=== PATIENT | female | born 1975 | race Caucasian/White ===

== ENCOUNTER 2018-05-21 08:27 | Emergency (ER) | payer MEDICARE, MEDICAID ==
[2018-05-21 08:42] VITALS: BP 137/92
--- NOTE | 2018-05-21 08:55 | EDM.PDOC ---
ED HPI GENERAL MEDICAL PROBLEM - General Chief Complaint: ENT Problem Stated Complaint: EARS,NOSE,THROAT,BACK Time Seen by Provider: 05/21/18 08:40 Source of Information: Reports: Patient, Old Records, RN History Limitations: Reports: No Limitations - History of Present Illness INITIAL COMMENTS - FREE TEXT/NARRATIVE: 42 yo female who quit smoking about 6 weeks ago presents with a fever to 101F this morning at home associated with a mild sore throat and a dry cough. Has not had a flu shot. 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 No SOB. Is worried mainly about strep. Did tx her fever before coming in. Not feeling well for about 4 d, much worse over the past 36 hrs. Onset: Gradual Onset Date: 05/17/18 Duration: Day(s): (4), Getting Worse Location: Reports: Neck (throat), Chest Quality: Reports: Other (mild burning in throat with cough or swallowing) Severity: Mild Improves with: Reports: Medication Worsens with: Reports: Other (coughing/swallowing) Context: Reports: Other (see HPI) Associated Symptoms: Reports: Cough, Fever/Chills. 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: Acetaminophen Throat Pain Score (Numeric/FACES): 6 - Related Data Allergies Allergy/AdvReac Type Severity Reaction Status Date / Time nortriptyline [Nortriptyline] Allergy Severe Airway Verified 12/07/17 09:00 Tightness hydrocodone bitartrate Allergy Intermediate Difficulty Verified 12/07/17 09:00 [From Vicodin] Swallowing citalopram [From Celexa] Allergy Other Verified 12/07/17 09:00 codeine Allergy Hives Verified 12/07/17 09:00 latex Allergy Hives Verified 12/07/17 09:00 Home Meds: Home Meds Cyclobenzaprine [Flexeril] 10 mg PO BID 03/06/14 [History] Omeprazole [Prilosec] 20 mg PO DAILY 07/22/14 [History] Albuterol Sulfate 3 ml INH Q4H PRN 12/05/17 [History] Albuterol Sulfate [Proventil Hfa] 1 - 2 puff INH Q4H PRN 12/05/17 [History] Prazosin [Minpress] 3 mg PO BEDTIME 12/05/17 [History] QUEtiapine [SEROquel] 100 mg PO BEDTIME 12/05/17 [History] hydrOXYzine pamoate [Vistaril] 25 - 50 mg PO TID PRN 12/05/17 [History] lamoTRIgine [LaMICtal] 150 mg PO DAILY 12/05/17 [History] Past Medical History HEENT History: Reports: Other (See Below) Other HEENT History: wears glasses Respiratory History: Reports: Bronchitis, Recurrent, COPD, Pneumonia, Recurrent , Other (See Below) Other Respiratory History: excercise induced asthma Gastrointestinal History: Reports: Chronic Diarrhea, GERD, Hemorrhoids, Other ( See Below) Other Gastrointestinal History: colitis 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: Reports: Endometriosis, Polycystic Ovaries, Musculoskeletal History: Reports: Arthritis, Back Pain, Chronic, Fracture, Other (See Below) Other Musculoskeletal History: left foot fracture Neurological History: Reports: Concussion, Migraines, Other (See Below) Other Neuro History: bulging disc L4-5 Psychiatric History: Reports: Anxiety, Bipolar, Depression, Panic Attack, PTSD Other Endocrine/Metabolic History: hypoglycemia - Infectious Disease History Infectious Disease History: Reports: Chicken Pox - Past Surgical History HEENT Surgical History: Reports: Oral Surgery GI Surgical History: Reports: Appendectomy, Colonoscopy Female Surgical History: Reports: Hysterectomy Neurological Surgical History: Reports: Lumbar Spine Musculoskeletal Surgical History: Reports: Other (See Below) Other Musculoskeletal Surgeries/Procedures:: foot surgery Social & Family History - Tobacco Use Smoking Status *Q: Former Smoker Used Tobacco, but Quit: Yes Month/Year Tobacco Last Used: 03/2008 - Caffeine Use Caffeine Use: Reports: Soda - Recreational Drug Use Recreational Drug Type: Reports: Marijuana/Hashish ED ROS ENT - Review of Systems Review Of Systems: See Below Constitutional: Reports: Fever, Malaise HEENT: Reports: Throat Pain (mild). Denies: Ear Pain, Eye Discharge, Rhinitis Respiratory: Reports: Cough. Denies: Shortness of Breath, Wheezing, Pleuritic Chest Pain, Sputum, Hemoptysis Cardiovascular: Reports: No Symptoms Endocrine: Reports: No Symptoms GI/Abdominal: Reports: No Symptoms : Reports: No Symptoms Musculoskeletal: Reports: No Symptoms Skin: Reports: No Symptoms Neurological: Reports: No Symptoms ED EXAM, ENT - Physical Exam Exam: See Below Exam Limited By: No Limitations General Appearance: Alert, WD/WN, No Apparent Distress Eye Exam: Bilateral Eye: Normal Inspection Ears: Normal External Exam, Normal Canal, Hearing Grossly Normal, Normal TMs Nose: Normal Inspection, No Blood Mouth/Throat: Normal Lips, Normal Oropharynx. No: Normal Teeth (edentulous), Hoarse Voice, Lip Swelling, Pharyngeal Erythema, Throat Swelling, Tongue Swelling, Tonsillar Erythema, Tonsillar Exudates Head: Atraumatic, Normocephalic Neck: Normal Inspection Respiratory/Chest: No Respiratory Distress, Lungs Clear, Normal Breath Sounds, No Accessory Muscle Use Cardiovascular: Regular Rate, Rhythm, No Edema GI/Abdominal: Normal Bowel Sounds, Soft, Non-Tender, No Distention Back: Normal Inspection. No: CVA Tenderness (R), CVA Tenderness (L) Extremities: Normal Inspection, Normal Range of Motion, Non-Tender, No Pedal Edema Neurological: Alert, Oriented, CN II-XII Intact, Normal Cognition Psychiatric: Normal Affect, Normal Mood Skin: Warm, Dry, Intact, Normal Color, No Rash Course - Vital Signs Last Recorded V/S: Last Vital Signs Temp 35.7 C 05/21/18 08:39 Pulse 82 05/21/18 08:39 Resp 16 05/21/18 08:39 BP 137/92 H 05/21/18 08:39 Pulse Ox - Orders/Labs/Meds Orders: Active Orders 24 hr Category Date Time Status CULTURE STREP A CONFIRMATION [RM] Stat Lab 05/21/18 09:13 Results STREP SCRN A RAPID W CULT CONF [RM] Stat Lab 05/21/18 09:13 Results Labs: Laboratory Tests 05/21/18 Range/Units 08:55 WBC 15.6 H (4.5-11.0) K/uL RBC 4.84 (3.30-5.50) M/uL Hgb 15.4 H (12.0-15.0) g/dL Hct 46.8 (36.0-48.0) % MCV 97 (80-98) fL MCH 32 H (27-31) pg MCHC 33 (32-36) % Plt Count 229 (150-400) K/uL Departure - Departure Time of Disposition: 09:30 Disposition: Home, Self-Care 01 Condition: Good Clinical Impression: Bronchitis - Discharge Information *PRESCRIPTION DRUG MONITORING PROGRAM REVIEWED*: No *COPY OF PRESCRIPTION DRUG MONITORING REPORT IN PATIENT MACKENZIE: No Instructions: Upper Respiratory Infection, Adult, [id number] Referrals: Alfredo Morales MD [Primary Care Provider] - Forms: ED Department Discharge Additional Instructions: Take azithromycin as directed until gone. Recheck with your provider if not improving, return here if worse. Take acetaminophen for pain or fever control. Frequent hand washing to prevent spread. Consider getting influenza vaccines going forward to reduce your risk of infecting your father. - My Orders Last 24 Hours: My Active Orders 05/21/18 09:13 CULTURE STREP A CONFIRMATION [RM] Stat STREP SCRN A RAPID W CULT CONF [RM] Stat - Assessment/Plan Last 24 Hours: My Active Orders 05/21/18 09:13 CULTURE STREP A CONFIRMATION [RM] Stat STREP SCRN A RAPID W CULT CONF [] Stat
== END 2018-05-21 09:37 | disposition home or self-care (01) ==
LOC: JP.ED 08:27
DX: J40 Bronchitis, not specified as acute or chronic (principal); K21.9 Gastro-esophageal reflux disease without esophagitis; F41.9 Anxiety disorder, unspecified; F32.9 Major depressive disorder, single episode, unspecified; Z90.49 Acquired absence of other specified parts of digestive tract; Z90.710 Acquired absence of both cervix and uterus; Z98.890 Other specified postprocedural states; Z88.5 Allergy status to narcotic agent; Z91.040 Latex allergy status; Z88.8 Allergy status to other drugs, medicaments and biological substances; Z87.891 Personal history of nicotine dependence
CPT/HCPCS: 36415; 85027; 87081; 87430; 87804; 87804-59; 99283

== ENCOUNTER 2018-06-01 12:17 | Emergency (ER) | payer MEDICARE, MEDICAID ==
--- NOTE | 2018-06-01 12:42 | EDM.PDOC ---
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 Has not sought care from her provider. Pain is more diffuse today. No swelling or discoloration. 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: Reports: Other (see below) (none) Right Foot Pain Score (Numeric/FACES): 8 - Related Data Allergies Allergy/AdvReac Type Severity Reaction Status Date / Time nortriptyline [Nortriptyline] Allergy Severe Airway Verified 06/01/18 12:27 Tightness hydrocodone bitartrate Allergy Intermediate Difficulty Verified 06/01/18 12:27 [From Vicodin] Swallowing citalopram [From Celexa] Allergy Other Verified 06/01/18 12:27 codeine Allergy Hives Verified 06/01/18 12:27 latex Allergy Hives Verified 06/01/18 12:27 Home Meds: Home Meds Cyclobenzaprine [Flexeril] 10 mg PO BID 03/06/14 [History] Omeprazole [Prilosec] 20 mg PO DAILY 07/22/14 [History] Albuterol Sulfate 3 ml INH Q4H PRN 12/05/17 [History] Albuterol Sulfate [Proventil Hfa] 1 - 2 puff INH Q4H PRN 12/05/17 [History] Prazosin [Minpress] 3 mg PO BEDTIME 12/05/17 [History] QUEtiapine [SEROquel] 100 mg PO BEDTIME 12/05/17 [History] hydrOXYzine pamoate [Vistaril] 25 - 50 mg PO TID PRN 12/05/17 [History] lamoTRIgine [LaMICtal] 150 mg PO DAILY 12/05/17 [History] Azithromycin [Zithromax] 250 mg PO DAILY #6 tab 05/21/18 [Rx] Past Medical History HEENT History: Reports: Other (See Below) Other HEENT History: wears glasses Respiratory History: Reports: Bronchitis, Recurrent, COPD, Pneumonia, Recurrent , Other (See Below) Other Respiratory History: excercise induced asthma Gastrointestinal History: Reports: Chronic Diarrhea, GERD, Hemorrhoids, Other ( See Below) Other Gastrointestinal History: colitis 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: Endometriosis, Polycystic Ovaries, Musculoskeletal History: Reports: Arthritis, Back Pain, Chronic, Fracture, Other (See Below) Other Musculoskeletal History: left foot fracture Neurological History: Reports: Concussion, Migraines, Other (See Below) Other Neuro History: bulging disc L4-5 Psychiatric History: Reports: Anxiety, Bipolar, Depression, Panic Attack, PTSD Other Endocrine/Metabolic History: hypoglycemia - Infectious Disease History Infectious Disease History: Reports: Chicken Pox - Past Surgical History Head Surgeries/Procedures: Reports: None HEENT Surgical History: Reports: Oral Surgery Respiratory Surgical History: Reports: None GI Surgical History: Reports: Appendectomy, Colonoscopy Female Surgical History: Reports: Hysterectomy Endocrine Surgical History: Reports: None Neurological Surgical History: Reports: Lumbar Spine Musculoskeletal Surgical History: Reports: Other (See Below) Other Musculoskeletal Surgeries/Procedures:: foot surgery Dermatological Surgical History: Reports: None Social & Family History - Tobacco Use Smoking Status *Q: Current Every Day Smoker Years of Tobacco use: 20 Packs/Tins Daily: 0.5 Used Tobacco, but Quit: No Second Hand Smoke Exposure: No - Caffeine Use Caffeine Use: Reports: Soda - Recreational Drug Use Recreational Drug Use: No Review of Systems - Review of Systems Review Of Systems: See Below Constitutional: Reports: No Symptoms Musculoskeletal: Reports: Foot Pain (Right) Skin: Reports: No Symptoms Neurological: Reports: No Symptoms ED EXAM, GENERAL - Physical Exam Exam: See Below Exam Limited By: No Limitations General Appearance: Alert, WD/WN, No Apparent Distress Extremities: Normal Inspection, Normal Range of Motion, No Pedal Edema, Other ( tender with palpation to the ). No: Pedal Edema, Limited Range of Motion, Increased Warmth, Redness Neurological: Alert, Oriented, CN II-XII Intact, Normal Cognition, No Motor/ Sensory Deficits Psychiatric: Normal Affect, Normal Mood Skin Exam: Warm, Dry, Intact, Normal Color, No Rash Course - Vital Signs Last Recorded V/S: Last Vital Signs Temp 35.3 C 06/01/18 12:32 Pulse 90 06/01/18 12:32 Resp 16 06/01/18 12:32 BP 130/86 06/01/18 12:32 Pulse Ox 98 06/01/18 12:32 - Orders/Labs/Meds Orders: Active Orders 24 hr Category Date Time Status Foot Comp Min 3V Rt [CR] Stat Exams 06/01/18 12:36 Taken - Radiology Interpretation Free Text/Narrative:: Foot X-ray-neg Departure - Departure Time of Disposition: 13:03 Disposition: Home, Self-Care 01 Condition: Good Clinical Impression: Foot contusion Qualifiers: Encounter type: initial encounter Laterality: right Qualified Code(s): S90.31XA - Contusion of right foot, initial encounter - Discharge Information *PRESCRIPTION DRUG MONITORING PROGRAM REVIEWED*: No *COPY OF PRESCRIPTION DRUG MONITORING REPORT IN PATIENT MACKENZIE: No Instructions: Foot Contusion, [id number] Referrals: Alfredo Morales MD [Primary Care Provider] - Forms: ED Department Discharge Additional Instructions: Ibuprofen or acetaminophen as needed. Recheck with your provider as needed. - My Orders Last 24 Hours: My Active Orders 06/01/18 12:36 Foot Comp Min 3V Rt [CR] Stat - Assessment/Plan Last 24 Hours: My Active Orders 06/01/18 12:36 Foot Comp Min 3V Rt [CR] Stat
[2018-06-01 13:10] VITALS: BP 130/86
--- NOTE | 2018-06-01 13:59 | CRLCR ---
Indication: Right foot pain. Technique: Three views of the right foot were obtained. Comparison: None Findings: No acute fracture or subluxation is identified. The joint spaces are well maintained. Impression: No acute fracture. Dictated by Deanna Huizar MD @ Jun 01 2018 1:56PM Signed by Dr. Deanna Huizar @ Jun 01 2018 1:57PM
== END 2018-06-01 13:11 | disposition home or self-care (01) ==
LOC: JP.ED 12:17
DX: S90.31XA Contusion of right foot, initial encounter (principal); F17.210 Nicotine dependence, cigarettes, uncomplicated; J44.9 Chronic obstructive pulmonary disease, unspecified; K21.9 Gastro-esophageal reflux disease without esophagitis; F31.9 Bipolar disorder, unspecified; F41.9 Anxiety disorder, unspecified; Z79.899 Other long term (current) drug therapy; Z91.040 Latex allergy status; Z88.8 Allergy status to other drugs, medicaments and biological substances; Z88.5 Allergy status to narcotic agent; W22.8XXA Striking against or struck by other objects, initial encounter
CPT/HCPCS: 73630-RT; 99282; 99283-25